=== PATIENT | female | born 1995 | race Caucasian/White ===

== ENCOUNTER 2017-10-12 23:50 | Emergency (ER) | payer MEDICAID ==
[~2017-10-12] VITALS: Ht 157.5 cm; Wt 68.0 kg
[~2017-10-12 23:50] MED LIST: IBUP-1984 PO; PROM25TA14 PO
[2017-10-13 00:17] VITALS: BP 102/48
== END 2017-10-13 00:25 | disposition left against medical advice (07) ==
LOC: ER 23:51
DX: R10.9 Unspecified abdominal pain (principal); R11.10 Vomiting, unspecified; Z53.21 Procedure and treatment not carried out due to patient leaving prior to being seen by health care provider

== ENCOUNTER 2017-10-29 23:28 | Emergency (ER) | payer MEDICAID ==
[~2017-10-29] VITALS: Ht 157.5 cm; Wt 73.0 kg
[2017-10-29 23:47] VITALS: BP 119/71
[2017-10-30] MEDS ORDERED: HYDROcodone/acetaminophen 10/325mg tab PO ONE (00:10)
[2017-10-30] MEDS ORDERED: IBUP-1986 PO (00:42)
[2017-10-30] MEDS ORDERED: TRAM50TA2 PO (00:42)
== END 2017-10-30 01:17 | disposition home or self-care (01) ==
LOC: ER 23:28
DX: S60.221A Contusion of right hand, initial encounter (principal); F12.10 Cannabis abuse, uncomplicated; F17.200 Nicotine dependence, unspecified, uncomplicated; X50.1XXA Overexertion from prolonged static or awkward postures, initial encounter; Y93.72 Activity, wrestling; Y92.89 Other specified places as the place of occurrence of the external cause; Y99.9 Unspecified external cause status
CPT/HCPCS: 29125; 73090; 73110; 99284

== ENCOUNTER 2018-07-27 11:00 | Emergency (ER) | payer MEDICAID ==
[~2018-07-27] VITALS: Ht 157.5 cm; Wt 59.0 kg
[~2018-07-27 11:00] MED LIST changes: +DIPH25CA83 PO; +IBUP-1986 PO; +ONDA8TAB9 PO; +PHE12.5T PO
[2018-07-27] MEDS ORDERED: normal saline 1000ML IV soln IVB ONE (11:35)
[2018-07-27] MEDS ORDERED: LORazepam 2 mg/ml vial IV ONE (12:00)
[2018-07-27 12:11] LABS: BASOPHILS % (AUTO) 0.4 % (0-1); EOSINOPHILS # (AUTO) 0.2 X10'3 (0-0.9); EOSINOPHILS % (AUTO) 1.6 % (0-6); HEMATOCRIT 39.6 % (35.0-45.0); HEMOGLOBIN 13.3 g/dl (12.0-16.0); LYMPHOCYTES # (AUTO) 1.6 X10'3 (1.1-4.8); LYMPHOCYTES % (AUTO) 12.9 % (21-51); MEAN CORPUSCULAR HEMOGLOBIN 29.9 PG (27.0-31.0); MEAN CORPUSCULAR HGB CONC 33.5 % (33.0-36.5); MEAN CORPUSCULAR VOLUME 89.5 FL (78-98); MEAN PLATELET VOLUME 7.4 FL (7.4-10.4); MONOCYTES # (AUTO) 0.8 X10'3 (0-0.9); MONOCYTES % (AUTO) 6.3 % (2-12); NEUTROPHILS % (AUTO) 78.8 % (42-75); PLATELET COUNT 365 X10'3 (140-440); RED BLOOD COUNT 4.42 X10'6 (4.20-5.60); RED CELL DISTRIBUTION WIDTH 13.1 % (11.5-14.5); WHITE BLOOD COUNT 12.7 X10'3 (4.5-11.0)
[2018-07-27 12:20] LABS: ALANINE AMINOTRANSFERASE 25 U/L (12-78); ALBUMIN 3.8 G/DL (3.4-5.0); ALBUMIN/GLOBULIN RATIO 1.1 (1.1-1.5); ALKALINE PHOSPHATASE 73 IU/L (46-116); ANION GAP 11 (8-16); ASPARTATE AMINO TRANSFERASE 15 U/L (10-37); BILIRUBIN,TOTAL 0.7 MG/DL (0.1-1.0); BLOOD UREA NITROGEN 11 MG/DL (7-18); BUN/CREATININE RATIO 16.9 (6.6-38.0); CALCIUM 9.3 MG/DL (8.5-10.1); CHLORIDE 98 MMOL/L (99-107); CREATININE 0.65 MG/DL (0.40-0.90); ETHANOL < 0.010 GM/DL (0.0-0.010); GLUCOSE 91 MG/DL (70-104); POTASSIUM 3.1 MMOL/L (3.5-5.1); SODIUM 135 MMOL/L (135-145); TOTAL CARBON DIOXIDE 25.8 MMOL/L (24-32); TOTAL PROTEIN 7.2 G/DL (6.4-8.2); eGFR > 90 ML/MIN
[2018-07-27 14:03] VITALS: BP 91/52
[2018-07-27 14:04] LABS: URINE AMPHETAMINE SCREEN POSITIVE (Neg); URINE BARBITUATE SCREEN NEGATIVE (Neg); URINE BENZODIAZEPINES SCREEN NEGATIVE (Neg); URINE CANNABINOID SCREEN POSITIVE (Neg); URINE COCAINE SCREEN NEGATIVE (Neg); URINE METHADONE SCREEN NEGATIVE (Neg); URINE OPIATE SCREEN NEGATIVE (Neg); URINE PHENCYCLIDINE SCREEN NEGATIVE (Neg)
[2018-07-27] MEDS ORDERED: PROM25SU46 RC (14:06)
[2018-07-27] MEDS ORDERED: HYDR-4383 PO (14:06)
[2018-07-30] MEDS ORDERED: POTA10TA36 PO (02:04)
[2018-07-30] MEDS ORDERED: MAGN200T8 PO (02:04)
[2018-07-30] MEDS ORDERED: ONDA4TAB6 PO (02:04)
== END 2018-07-27 14:21 | disposition home or self-care (01) ==
LOC: ER 11:00
DX: R41.82 Altered mental status, unspecified (principal); F12.90 Cannabis use, unspecified, uncomplicated; Z79.899 Other long term (current) drug therapy
CPT/HCPCS: 36415; 71045; 80053; 80305; 80320; 82948; 85025; 96374; 99284; J2060; J7030

== ENCOUNTER 2018-08-20 21:21 | Emergency (ER) | payer MEDICAID ==
[~2018-08-20] VITALS: Ht 162.6 cm; Wt 50.0 kg
[~2018-08-20 21:21] MED LIST changes: +HYDR-4383 PO; +MAGN200T8 PO; +ONDA4TAB6 PO; +POTA10TA36 PO; +PROM25SU46 RC
--- NOTE | 2018-08-20 22:17 | NUR ---
PT WAS WALKING TO BATHROOM WHEN SHE LAYED ON THE GROUND AND HAD A "PSEUDOSEIZURE." WHEN TOLD TO STOP FAKING IT, PT STOOD UP AND TOLD THIS RN THAT HER "PSEUDOSEIZURE WERE FUCKING REAL, FUCK YOU!" PT TRIED TO THROW URINE AT ME AND THEN SECURITY WAS CALLED. PTS "PSEUDOSEIZURES" ARE CURED WHEN SHE IS ANGRY.
[2018-08-20] MEDS: LORazepam 2 mg/ml vial IV ONE (22:29)
[2018-08-20] MEDS: proCHLORperazine 10 MG/2 ml inj IV ONE (22:30)
[2018-08-20] MEDS: normal saline 1000ML IV soln IVB ONE (22:30)
[2018-08-20] MEDS: haloperidol lactate 5mg/ml inj IM ONE (22:30)
--- NOTE | 2018-08-20 22:40 | NUR ---
Medications and MD orders delayed secound to patients behaviour.
--- NOTE | 2018-08-20 23:00 | NUR ---
ASSUMED CARE OF PATIENT AND MOVED BACK TO [place] [id number]. AFTER DISCUSSION WITH PATIENT ALLOWING FOR QUESTIONS ANSWERS ETC. PATIENT REPORTS SHE IS THANKFULL I CAME OUTSIDE AND BROUGHT HER BACK.
--- NOTE | 2018-08-20 23:40 | NUR ---
PT MOVED TO BED 6.
[2018-08-21] MEDS: proCHLORperazine 10 MG/2 ml inj IV ONE (00:02)
[2018-08-21] MEDS: normal saline 1000ML IV soln IVB ONE (00:02)
[2018-08-21] MEDS: haloperidol lactate 5mg/ml inj IM ONE (00:04)
[2018-08-21] MEDS: LORazepam 2 mg/ml vial IV ONE (00:06)
[2018-08-21 00:25] VITALS: BP 88/40
--- NOTE | 2018-08-21 01:14 | NUR ---
PT WALKED TO BATHROOM AND PROVIDED URINE SAMPLE, APPEARS IN NO ACUTE DISTRESS, PT NOT VOMITING.
[2018-08-21 01:27] LABS: URINE HCG NEGATIVE (NEG)
--- NOTE | 2018-08-21 02:22 | NUR ---
PT EASILY ARROUSABLE AFTER SLEEPING, APPEARS IN NO DISTRESS, NO PSEUDOSEIZURES, PT REPORTS FEELING A LITTLE BIT BETTER, FALLS BACK ASLEEP RIGHT AWAY,.
== END 2018-08-21 02:50 | disposition home or self-care (01) ==
LOC: ER 21:21
DX: R11.2 Nausea with vomiting, unspecified (principal); R56.9 Unspecified convulsions; F12.90 Cannabis use, unspecified, uncomplicated; F15.90 Other stimulant use, unspecified, uncomplicated; Z79.899 Other long term (current) drug therapy
CPT/HCPCS: 81025; 96361; 96372; 96374; 96375; 99283; J0780; J1630; J2060; J7030

== ENCOUNTER 2018-09-11 12:29 | Emergency (ER) | payer MEDICAID ==
[~2018-09-11] VITALS: Ht 157.5 cm; Wt 60.5 kg
[2018-09-11] MEDS ORDERED: ondansetron 4mg rapidly disintigrating tab PO ONE (12:40)
[2018-09-11 12:47] VITALS: BP 135/59
--- NOTE | 2018-09-11 12:50 | NUR ---
Patient had sz like activity last approx 3 min[address] No incontinence. Patient able to talk and answer questions correctly right after event. Patient's A&O x4. Patient's mother Jaclyn called also and left phone number [phone]. Patient states okay to update mother of her care.
--- NOTE | 2018-09-11 13:13 | NUR ---
PATIENT RAPIDLY THRUSTING PELVIS WHILE LAYING ON LEFT SIDE; PATIENT HELD HER ARM IN THE AIR WHEN IT WAS LIFTED. PATIENT VISIBLY FORCED EYES CLOSED WHEN ATTEMPTING TO LOOK AT PUPILS. PATIENT STOPPED MVEMENT AND RAPIDLY ASKED: WHY DOES MY BODY DO THIS? LABS DRAWN THRU IV
[2018-09-11] MEDS ORDERED: PNV1TABL75 PO (13:32)
[2018-09-11 13:38] LABS: ALANINE AMINOTRANSFERASE 18 U/L (12-78); ALBUMIN 3.6 G/DL (3.4-5.0); ALBUMIN/GLOBULIN RATIO 1.2 (1.1-1.5); ALKALINE PHOSPHATASE 81 IU/L (46-116); ANION GAP 18 (8-16); ASPARTATE AMINO TRANSFERASE 19 U/L (10-37); BILIRUBIN,TOTAL 0.6 MG/DL (0.1-1.0); BLOOD UREA NITROGEN 4 MG/DL (7-18); BUN/CREATININE RATIO 5.5 (6.6-38.0); CALCIUM 8.6 MG/DL (8.5-10.1); CHLORIDE 98 MMOL/L (99-107); CREATININE 0.73 MG/DL (0.40-0.90); GLUCOSE 86 MG/DL (70-104); POTASSIUM 3.5 MMOL/L (3.5-5.1); SODIUM 133 MMOL/L (135-145); TOTAL CARBON DIOXIDE 17.4 MMOL/L (24-32); TOTAL PROTEIN 6.7 G/DL (6.4-8.2); eGFR > 90 ML/MIN
[2018-09-11] MEDS ORDERED: normal saline 1000ML IV soln IVB ONE (13:50)
== END 2018-09-11 14:56 | disposition home or self-care (01) ==
LOC: ER 12:29
DX: O26.891 Other specified pregnancy related conditions, first trimester (principal); R56.9 Unspecified convulsions; R11.0 Nausea; O99.321 Drug use complicating pregnancy, first trimester; F12.90 Cannabis use, unspecified, uncomplicated; F15.90 Other stimulant use, unspecified, uncomplicated; Z79.899 Other long term (current) drug therapy; Z3A.01 Less than 8 weeks gestation of pregnancy
CPT/HCPCS: 36415; 80053; 99283; J7030

== ENCOUNTER 2018-09-14 12:10 | Emergency (ER) | payer MEDICAID ==
[~2018-09-14] VITALS: Ht 157.5 cm; Wt 60.0 kg
[~2018-09-14 12:10] MED LIST changes: +PNV1TABL75 PO
[2018-09-14 14:58] VITALS: BP 120/86
== END 2018-09-14 19:13 | disposition left against medical advice (07) ==
LOC: ER 12:11
DX: O46.91 Antepartum hemorrhage, unspecified, first trimester (principal); Z3A.01 Less than 8 weeks gestation of pregnancy; Z53.21 Procedure and treatment not carried out due to patient leaving prior to being seen by health care provider

== ENCOUNTER 2018-12-31 16:57 | Emergency (ER) | payer MEDICAID ==
[~2018-12-31] VITALS: Ht 154.9 cm; Wt 71.4 kg
[2018-12-31] MEDS ORDERED: normal saline 1000ml 1,000 ML IV ONE ×3 (17:10→21:20)
[2018-12-31] MEDS ORDERED: ondansetron/PF 4mg/2ml inj IV ONE (17:10)
[2018-12-31 17:24] LABS: BASOPHILS # (AUTO) 0.1 X10'3 (0-0.2); BASOPHILS % (AUTO) 0.2 % (0-1); EOSINOPHILS % (AUTO) 0 % (0-6); HEMATOCRIT 42.3 % (35.0-45.0); HEMOGLOBIN 14.3 g/dl (12.0-16.0); LYMPHOCYTES # (AUTO) 0.7 X10'3 (1.1-4.8); LYMPHOCYTES % (AUTO) 2.9 % (21-51); MEAN CORPUSCULAR HEMOGLOBIN 30.2 PG (27.0-31.0); MEAN CORPUSCULAR HGB CONC 33.7 g/dL (33.0-36.5); MEAN CORPUSCULAR VOLUME 89.7 FL (78-98); MEAN PLATELET VOLUME 6.9 FL (7.4-10.4); MONOCYTES # (AUTO) 0.3 X10'3 (0-0.9); MONOCYTES % (AUTO) 1.3 % (2-12); NEUTROPHILS # (AUTO) 21.6 X10'3 (1.8-7.7); NEUTROPHILS % (AUTO) 95.6 % (42-75); PLATELET COUNT 391 X10'3 (140-440); RED BLOOD COUNT 4.72 X10'6 (4.20-5.60); RED CELL DISTRIBUTION WIDTH 13.1 % (11.5-14.5); WHITE BLOOD COUNT 22.6 X10'3 (4.5-11.0)
[2018-12-31 18:01] LABS: ALANINE AMINOTRANSFERASE 78 U/L (12-78); ALBUMIN 4.1 G/DL (3.4-5.0); ALBUMIN/GLOBULIN RATIO 1.1 (1.1-1.5); ALKALINE PHOSPHATASE 93 IU/L (46-116); ANION GAP 21 (8-16); ASPARTATE AMINO TRANSFERASE 24 U/L (10-37); BILIRUBIN,TOTAL 0.7 MG/DL (0.1-1.0); BLOOD UREA NITROGEN 14 MG/DL (7-18); BUN/CREATININE RATIO 15.6 (6.6-38.0); CALCIUM 9.4 MG/DL (8.5-10.1); CHLORIDE 102 MMOL/L (99-107); GLUCOSE 182 MG/DL (70-104); LIPASE 72 U/L (73-393); POTASSIUM 3.6 MMOL/L (3.5-5.1); SODIUM 138 MMOL/L (135-145); eGFR 76 ML/MIN
[2018-12-31 18:04] LABS: BETA HCG,QUANTITATIVE 44794 mIU/ml
[2018-12-31] MEDS ORDERED: LORazepam 2 mg/ml vial IV ONE ×2 (18:20→21:10)
[2018-12-31] MEDS ORDERED: dextrose 5%-normal saline 1,000 ML IV ONE (18:20)
--- NOTE | 2018-12-31 18:43 | NUR ---
ABG done Pt awoke and tolerated it well I sent the out to go and eat and pull himself together.
[2018-12-31 18:50] LABS: ABG BASE EXCESS -10.3 mmol/L (-2.0-3.0); ABG HCO3 13.3 mmol/L (22.0-26.0); ABG PCO2 (T) 24.1 mmHg (32.0-45.0); ABG PH (T) 7.358 (7.350-7.450); ABG PO2 (T) 100.3 mmHg (83-108); ALLEN'S TEST Positive; FCOHb 0.4 % (0.5-1.5); FMetHb 0.2 % (0.3-1.12); FO2Hb 96.4 % (94-100); PATIENT TEMPERATURE 36.9; TOTAL HEMOGLOBIN 13.4 G/dl (12.0-16.0)
--- NOTE | 2018-12-31 19:37 | NUR ---
WHEN VISITING WITH THE [facility], HE SAID THAT SHE HAS NOT SEEN HER PSYCHOLOGIST FOR QUIT SOME TIME R/T LACK OF INSURANCE. SHE IS TO BE ON MEDICINE BUT HE IS NOT SURE IF SHE TAKES IT OR NOT SINCE SHE HAS GOTTEN .
--- NOTE | 2018-12-31 19:57 | NUR ---
lab called out from room and said she was having a seizure. I went in and took down the siderail and instructed her to get up and give me a urine sample. She stopped 'pseudo-seizuring' and got out of bed, asked where her was, and went to the bathroom. When she came back she set the urine on the counter, she had not used the wipe, and she crawled back into bed. As I applied the tourniquet she started the thrash her body up and down on the bed. I informed her that she could just stop it. And she immediately did. Blood was drawn, IV flushed and hooked back up to the saline.
[2018-12-31 20:07] LABS: CLARITY,URINE SLIGHTLY CLOUDY (Clear); COLOR,URINE YELLOW (Yellow); GLUCOSE, URINE 500 mg/dl (Neg); KETONES,URINE 40 mg/dl (Neg); LEUKOCYTE ESTERASE ,URINE SMALL (Neg); NITRITES, URINE NEGATIVE (Neg); OCCULT BLOOD,URINE TRACE-INTACT (Neg); PH,URINE 5.5 (4.8-8.0); PROTEIN,URINE NEGATIVE (Neg); UROBILINOGEN,URINE 0.2 E.U/dL (0.2-1.0)
[2018-12-31 20:11] LABS: UA COLLECTION TYPE CLN CATCH MIDSTREAM
[2018-12-31 20:13] LABS: ALBUMIN 3.4 G/DL (3.4-5.0); ANION GAP 12 (8-16); BLOOD UREA NITROGEN 10 MG/DL (7-18); BUN/CREATININE RATIO 11.4 (6.6-38.0); CALCIUM 7.6 MG/DL (8.5-10.1); CHLORIDE 108 MMOL/L (99-107); CREATININE 0.88 MG/DL (0.40-0.90); GLUCOSE 209 MG/DL (70-104); POTASSIUM 4.1 MMOL/L (3.5-5.1); SODIUM 138 MMOL/L (135-145); TOTAL CARBON DIOXIDE 18.5 MMOL/L (24-32); eGFR 78 ML/MIN
[2018-12-31 20:14] LABS: BACTERIA,URINE 2+ /HPF (Neg); MUCUS STRANDS NONE SEEN /LPF (Neg); RBC,URINE 0-2 /HPF (0-2); SQUAMOUS EPITHELIAL CELL,UR MANY /LPF (FEW); WBC,URINE 0-4 /HPF (0-4)
[2018-12-31] MEDS ORDERED: metoclopramide 5 mg/ml inj IV ONE (21:20)
--- NOTE | 2018-12-31 21:38 | NUR ---
CHEMA, SPOUSE CALLED. UPDATED HIM THAT [facility] NOT [facility]SFER. CHEMA STATES SHE IS NOT A DIABETIC BUT REPORTS SHE REALLY HAS BEEN EATING A LOT OF SUGARY THINGS LATELY.
--- NOTE | 2018-12-31 21:54 | NUR ---
CALLED CHEMA, UPDATED HIM ON POC AND HE SAID THAT HE FOUND HER PILLS AND SHE HAS NOT BEEN TAKING THEM. THEY ARE LAMICTAL AND MERTAZIPINE.
[2018-12-31] MEDS ORDERED: PHE25R PR (22:06)
--- NOTE | 2018-12-31 22:30 | NUR ---
AWOKE HER AND HAD HER TAKE A SIP OF JUICE AND A SPOONFUL OF YOGURT. ENCOURAGED HER TO WAKE UP AND EAT. SHE ASKED THAT I SIT THE YOGURT DOWN. THAT SHE WILL IN A BIT. SHE WILL NOT HAVE ANY EYE CONTACT WITH ME AND IS SHORT TEMPERED AND SEEMS DISINTERESTED IN THE FOOD AND WANTS TO SLEEP.
--- NOTE | 2018-12-31 23:53 | NUR ---
pt has eaten all the yogurt and drank a cup of water and a juice box and kept it all down and is asleep.
--- NOTE | 2019-01-01 01:10 | NUR ---
SPOUSE WILL BE HERE SOON TO GET HER
[2019-01-01 01:34] VITALS: BP 108/68
== END 2019-01-01 01:36 | disposition home or self-care (01) ==
LOC: ER 16:57
DX: O26.891 Other specified pregnancy related conditions, first trimester (principal); O99.331 Smoking (tobacco) complicating pregnancy, first trimester; R11.2 Nausea with vomiting, unspecified; R10.9 Unspecified abdominal pain; F31.9 Bipolar disorder, unspecified; F17.200 Nicotine dependence, unspecified, uncomplicated; F12.90 Cannabis use, unspecified, uncomplicated; F15.90 Other stimulant use, unspecified, uncomplicated; Z3A.01 Less than 8 weeks gestation of pregnancy; Z79.899 Other long term (current) drug therapy
CPT/HCPCS: 36415; 36600; 80048; 80053; 81001; 82009; 82803; 82948; 83690; 84702; 85018; 85025; 96361; 96374; 96375; 96376; 99284; J2060; J2405; J2765; J7030; J7042; 99283

== ENCOUNTER 2020-03-01 19:40 | Emergency (ER) | payer MEDICAID ==
[~2020-03-01] VITALS: Ht 157.5 cm; Wt 65.9 kg
[~2020-03-01 19:40] MED LIST changes: -PHE12.5T PO; +PHE25R PR; +PROM12.512 PO
--- NOTE | 2020-03-01 20:02 | NUR ---
PT HAD PSEUDOSEIZURE DURING BLOOD DRAW. PT INSTRUCTED TO STOP AND PT FOLLOWED COMMANDS.
--- NOTE | 2020-03-01 20:20 | NUR ---
PT LAYING ON RIGHT SIDE WITH EYES CLOSED AND HOLDING HER ARMS OUT IN THE AIR IN A STIFF POSITION AND SHAKING THEM. ENTERED THE ROOM AND ASKED PT TO ROLL ONTO HER BACK SO THAT WE COULD DRAW HER BLOOD. PT DOESN'T OPEN HER EYES BUT STOPS SHAKING AND ROLLS ONTO HER BACK. LAB IS ABLE TO COLLECT A BLOOD SAMPLE.
--- NOTE | 2020-03-01 20:41 | NUR ---
PT IS LAYING ON HER STOMACH SCREAMING "SOMEONE HELP ME" SHE IS ALSO POUNDING HER FISTS INTO THE MATTRESS. WHEN STAFF ENTER THE ROOM SHE WILL STOP BUT THEN SHE STARTS UP AGAIN SOON YOU LEAVE. PT IS ADVISED THAT HER LAB WORK IS PROCESSING AND THAT WE ARE STILL WAITING FOR AN MD TO SEE HER.
[2020-03-01 20:49] LABS: BASOPHILS % (AUTO) 0.2 % (0-1); EOSINOPHILS % (AUTO) 0.1 % (0-6); HEMATOCRIT 43.6 % (35.0-45.0); HEMOGLOBIN 14.8 g/dl (12.0-16.0); LYMPHOCYTES # (AUTO) 1.3 X10'3 (1.1-4.8); LYMPHOCYTES % (AUTO) 7.2 % (21-51); MEAN CORPUSCULAR HEMOGLOBIN 30.2 PG (27.0-31.0); MEAN CORPUSCULAR HGB CONC 33.8 g/dL (33.0-36.5); MEAN CORPUSCULAR VOLUME 89.4 FL (78-98); MEAN PLATELET VOLUME 7.6 FL (7.4-10.4); MONOCYTES # (AUTO) 0.3 X10'3 (0-0.9); MONOCYTES % (AUTO) 1.9 % (2-12); NEUTROPHILS # (AUTO) 16.2 X10'3 (1.8-7.7); NEUTROPHILS % (AUTO) 90.6 % (42-75); PLATELET COUNT 417 X10'3 (140-440); RED BLOOD COUNT 4.88 X10'6 (4.20-5.60); RED CELL DISTRIBUTION WIDTH 13.2 % (11.5-14.5); WHITE BLOOD COUNT 17.9 X10'3 (4.5-11.0)
[2020-03-01 20:58] LABS: ALANINE AMINOTRANSFERASE 21 U/L (12-78); ALBUMIN 4.3 G/DL (3.4-5.0); ALKALINE PHOSPHATASE 115 IU/L (46-116); ANION GAP 21 (8-16); ASPARTATE AMINO TRANSFERASE 18 U/L (10-37); BILIRUBIN,TOTAL 0.7 MG/DL (0.1-1.0); BLOOD UREA NITROGEN 16 MG/DL (7-18); CALCIUM 9.4 MG/DL (8.5-10.1); CHLORIDE 104 MMOL/L (99-107); CREATININE 0.84 MG/DL (0.40-0.90); GLUCOSE 112 MG/DL (70-104); LIPASE 78 U/L (73-393); SODIUM 139 MMOL/L (135-145); TOTAL PROTEIN 8.4 G/DL (6.4-8.2); eGFR 82 ML/MIN
[2020-03-01 21:17] LABS: TOTAL CARBON DIOXIDE 13.9 MMOL/L (24-32)
--- NOTE | 2020-03-01 21:21 | NUR ---
Pt continues to pound her feet on the bed then hold her arms stiffly in the air. Immediatly after, pt sits up, looks around and repositions herself, then asked for the tech to get her an emesis bag. Pt states that she is unable to give a urine sample at this time.
--- NOTE | 2020-03-01 21:37 | NUR ---
PT HAS DROPPED EVERY VOMIT BAG WE HAVE GIVEN HER (ABOUT 5, NONE OF WHICH HAVE VOMIT IN THEM). SHE GOT HERSELF UP OUT OF BED, GRABBED ANOTHER VOMIT BAG, TURNED OFF THE LIGHTS IN HER ROOM AND GOT BACK IN BED AND IMMEDIATELY STARTED POUNDING ON THE BED AGAIN WITH HER FISTS.
[2020-03-01] MEDS ORDERED: LORazepam 2 mg/ml vial IV ONE (22:00)
[2020-03-01] MEDS ORDERED: normal saline 1000ml 1,000 ML IV ONE ×2 (22:00→23:20)
--- NOTE | 2020-03-01 22:00 | NUR ---
PROVIDER AT BEDSIDE
[2020-03-01] MEDS ORDERED: diphenhydrAMINE 50 mg/ml inj IV ONE ×2 (22:10→22:45)
[2020-03-01] MEDS ORDERED: proCHLORperazine 10 MG/2 ml inj IV ONE (22:10)
[2020-03-01] MEDS: haloperidol lactate 5mg/ml inj IM ONE ×2 (22:45→23:38)
[2020-03-01 23:10] LABS: ABG BASE EXCESS -10.8 mmol/L (-2.0-2.0); ABG HCO3 11.7 mmol/L (22.0-26.0); ABG OXYGEN SATURATION 97.9 % (94-97); ABG PCO2 (T) 19.8 mmHg (32.0-45.0); ALLEN'S TEST Modified; FCOHb 0.5 % (0.0-3.9); FMetHb 0.1 % (0.0-1.5); FO2Hb 97.3 % (94-97); PATIENT TEMPERATURE 36.5; TOTAL HEMOGLOBIN 14.9 G/dl (12.0-16.0)
--- NOTE | 2020-03-01 23:14 | NUR ---
PRETTY NOLASCO [phone]
--- NOTE | 2020-03-01 23:29 | NUR ---
pt uncooperative with bloodpressure cuff and pulse oximeter. Unable to take vital signs. Pt asked to leave cuff and finger monitor in place.
[2020-03-01 23:38] LABS: CREATINE KINASE 48 U/L (26-192)
[2020-03-01 23:44] VITALS: BP 96/44
[2020-03-01] MEDS ORDERED: haloperidol lactate 5mg/ml inj IM ONE (23:50)
[2020-03-02 00:10] LABS: ALANINE AMINOTRANSFERASE 19 U/L (12-78); ALBUMIN 3.8 G/DL (3.4-5.0); ALKALINE PHOSPHATASE 105 IU/L (46-116); ANION GAP 18 (8-16); ASPARTATE AMINO TRANSFERASE 14 U/L (10-37); BILIRUBIN,TOTAL 0.5 MG/DL (0.1-1.0); BLOOD UREA NITROGEN 15 MG/DL (7-18); BUN/CREATININE RATIO 17.4 (6.6-38.0); CALCIUM 8.6 MG/DL (8.5-10.1); CHLORIDE 106 MMOL/L (99-107); CREATININE 0.86 MG/DL (0.40-0.90); GLUCOSE 104 MG/DL (70-104); POTASSIUM 4.6 MMOL/L (3.5-5.1); SODIUM 140 MMOL/L (135-145); TOTAL CARBON DIOXIDE 16.4 MMOL/L (24-32); TOTAL PROTEIN 7.6 G/DL (6.4-8.2); eGFR 80 ML/MIN
[2020-03-02] MEDS ORDERED: ONDA4TAB6 PO (00:11)
[2020-03-02] MEDS ORDERED: normal saline 1000ml 1,000 ML IV ONE (00:25)
== END 2020-03-02 02:41 | disposition home or self-care (01) ==
LOC: ER 19:41
DX: R11.2 Nausea with vomiting, unspecified (principal); R10.819 Abdominal tenderness, unspecified site; F12.90 Cannabis use, unspecified, uncomplicated; F15.90 Other stimulant use, unspecified, uncomplicated; Z86.69 Personal history of other diseases of the nervous system and sense organs; Z79.899 Other long term (current) drug therapy
CPT/HCPCS: 36415; 36600; 80053; 82550; 82803; 83605; 83690; 85018; 85025; 93005; 96361; 96372; 96374; 96375; 96376; 99285; J0780; J1200; J1630; J2060; J7030; 99284

== ENCOUNTER 2020-05-15 11:52 | Inpatient (IN) | payer MEDICAID ==
[~2020-05-15] VITALS: Ht 167.6 cm; Wt 86.4 kg
[~2020-05-15 11:52] MED LIST changes: -PROM25SU46 RC; +PROM25SU9 RC
[2020-05-15] MEDS ORDERED: LORazepam 2 mg/ml vial IV ONE ×3 (12:00→16:55)
[2020-05-15] MEDS ORDERED: LORazepam 2 mg/ml vial ONE (12:01)
[2020-05-15] MEDS ORDERED: normal saline 1000ML IV soln IVB ONE (12:05)
[2020-05-15 12:32] LABS: BASOPHILS # (AUTO) 0.1 X10'3 (0-0.2); BASOPHILS % (AUTO) 0.3 % (0-1); EOSINOPHILS % (AUTO) 0 % (0-6); HEMATOCRIT 41.2 % (35.0-45.0); HEMOGLOBIN 13.7 g/dl (12.0-16.0); LYMPHOCYTES # (AUTO) 0.9 X10'3 (1.1-4.8); LYMPHOCYTES % (AUTO) 4.7 % (21-51); MEAN CORPUSCULAR HEMOGLOBIN 30.5 PG (27.0-31.0); MEAN CORPUSCULAR HGB CONC 33.3 g/dL (33.0-36.5); MEAN CORPUSCULAR VOLUME 91.7 FL (78-98); MEAN PLATELET VOLUME 7.3 FL (7.4-10.4); MONOCYTES # (AUTO) 0.5 X10'3 (0-0.9); MONOCYTES % (AUTO) 2.6 % (2-12); NEUTROPHILS % (AUTO) 92.4 % (42-75); PLATELET COUNT 409 X10'3 (140-440); RED BLOOD COUNT 4.49 X10'6 (4.20-5.60); RED CELL DISTRIBUTION WIDTH 14.3 % (11.5-14.5); WHITE BLOOD COUNT 19.5 X10'3 (4.5-11.0)
[2020-05-15 12:37] LABS: URINE HCG NEGATIVE (NEG)
[2020-05-15 12:38] LABS: CLARITY,URINE SLIGHTLY CLOUDY (Clear); COLOR,URINE YELLOW (Yellow); GLUCOSE, URINE NEGATIVE (Neg); KETONES,URINE TRACE mg/dl (Neg); LEUKOCYTE ESTERASE ,URINE NEGATIVE (Neg); NITRITES, URINE NEGATIVE (Neg); OCCULT BLOOD,URINE SMALL (Neg); PROTEIN,URINE TRACE mg/dl (Neg); UROBILINOGEN,URINE 0.2 E.U/dL (0.2-1.0)
--- NOTE | 2020-05-15 12:39 | NUR ---
PATIENT TO CT AT THIS TIME VIA [facility], AROUSABLE TO VERBAL/TACTILE STIMULATION, ABLE TO FOLLOW SIMPLE COMMANDS. NO SIGNS OF DISTRESS NOTED.
[2020-05-15 12:41] LABS: UA COLLECTION TYPE STRAIGHT CATH
[2020-05-15 12:45] LABS: ALBUMIN 4.2 G/DL (3.4-5.0); ALBUMIN/GLOBULIN RATIO 1.1 (1.1-1.5); ALKALINE PHOSPHATASE 97 IU/L (46-116); ANION GAP 16 (8-16); ASPARTATE AMINO TRANSFERASE 22 U/L (10-37); BILIRUBIN,TOTAL 0.5 MG/DL (0.1-1.0); BLOOD UREA NITROGEN 15 MG/DL (7-18); BUN/CREATININE RATIO 12.3 (6.6-38.0); CALCIUM 8.9 MG/DL (8.5-10.1); CHLORIDE 105 MMOL/L (99-107); CREATININE 1.22 MG/DL (0.40-0.90); ETHANOL < 0.010 GM/DL (0.0-0.010); GLUCOSE 125 MG/DL (70-104); SODIUM 140 MMOL/L (135-145); TOTAL PROTEIN 7.9 G/DL (6.4-8.2); eGFR 53 ML/MIN
[2020-05-15 12:50] LABS: BACTERIA,URINE 3+ /HPF (Neg); MUCUS STRANDS MODERATE /LPF (Neg); RBC,URINE 0-2 /HPF (0-2); SQUAMOUS EPITHELIAL CELL,UR FEW /LPF (FEW); WBC,URINE 0-4 /HPF (0-4)
[2020-05-15 12:52] LABS: URINE AMPHETAMINE SCREEN NEGATIVE (Neg); URINE BARBITUATE SCREEN NEGATIVE (Neg); URINE BENZODIAZEPINES SCREEN NEGATIVE (Neg); URINE CANNABINOID SCREEN POSITIVE (Neg); URINE COCAINE SCREEN NEGATIVE (Neg); URINE METHADONE SCREEN NEGATIVE (Neg); URINE OPIATE SCREEN POSITIVE (Neg); URINE PHENCYCLIDINE SCREEN NEGATIVE (Neg)
[2020-05-15 13:09] LABS: ALANINE AMINOTRANSFERASE 36 U/L (12-78)
[2020-05-15] MEDS ORDERED: levetiracetam-NS 1000mg/100ml 100 ML IV ONE (13:35)
[2020-05-15] MEDS ORDERED: ondansetron/PF 4mg/2ml inj IV PRN (14:15)
[2020-05-15] MEDS ORDERED: LORazepam 2 mg/ml vial IV PRN (14:15)
[2020-05-15] MEDS ORDERED: potassium CL 10mEq/100ml bag 100 ML IV PRN (14:15)
[2020-05-15] MEDS ORDERED: acetaminophen 325mg tablet PO PRN (14:15)
[2020-05-15] MEDS ORDERED: potassium Cl 20 mEq SR tablet PO PRN ×2 (14:15)
[2020-05-15] MEDS ORDERED: mag hydrox/Alum hydrox/simeth 30ml oral suspension PO PRN (14:15)
[2020-05-15] MEDS ORDERED: magnesium hydroxide 30ml (MOM) UD suspension PO PRN (14:15)
[2020-05-15] MEDS ORDERED: UNABLE TO OBTAIN (14:22)
[2020-05-15] MEDS: normal saline 1000ml 1,000 ML IV SCH (14:34)
[2020-05-15] MEDS ORDERED: metoclopramide 5 mg/ml inj IV PRN (15:40)
--- NOTE | 2020-05-15 16:05 | NUR ---
Pt arrived to the floor, while assessing, pt began seizing. 6 Addendum: 05/15/20 at 1710 by Angelina Richter RN Pt had 7 seizures from 1630 until 1702, each lasting 10 - 15 seconds. Pt was given ordered medication. Calls/pages were placed to hospitalist, nursing supe and ICU charge. Finally able to obtain an order for additional medications.
--- NOTE | 2020-05-15 16:08 | NUR ---
Patient in room ED 15. I have received report from Kayla and had the opportunity to ask questions and assume patient care.
[2020-05-15 16:30] VITALS: BP_SYST 102; BP_SYST 104; BP_DIAS 70; BP_DIAS 75
[2020-05-15 16:37] VITALS: BP 151/65
[2020-05-15] MEDS: potassium CL 10mEq/100ml bag 100 ML IV PRN ×7 (16:51→23:58)
[2020-05-15] MEDS: pantoprazole 40 MG vial IV SCH (17:56)
--- NOTE | 2020-05-15 18:21 | NUR ---
Problems reprioritized. Patient report given, questions answered & plan of care reviewed with Prudence.
--- NOTE | 2020-05-15 18:58 | NUR ---
Patient in room ORTHO 4023. I have received report from POONAM CONNOLLY and had the opportunity to ask questions and assume patient care.
[2020-05-15] MEDS ORDERED: levetiracetam inj 1,000 MG in normal saline 100ml IV soln 90 ML IV SCH ×2 (20:00)
[2020-05-15] MEDS: K and/or MAG REPLACEMENT MC SCH (20:00)
[2020-05-15] MEDS ORDERED: Levetiracetam-NS 500mg/100ml 100 ML IV SCH (20:00)
[2020-05-15] MEDS: levetiracetam-NS 1000mg/100ml 100 ML IV SCH (20:49)
[2020-05-15 22:00] VITALS: BP 104/60
[2020-05-16] MEDS: normal saline 1000ml 1,000 ML IV SCH ×2 (01:12→11:04)
[2020-05-16] MEDS: potassium CL 10mEq/100ml bag 100 ML IV PRN (01:12)
[2020-05-16 06:00] VITALS: BP 101/68
[2020-05-16 06:01] LABS: BASOPHILS % (AUTO) 0.4 % (0-1); EOSINOPHILS # (AUTO) 0.1 X10'3 (0-0.9); EOSINOPHILS % (AUTO) 0.7 % (0-6); HEMATOCRIT 35.5 % (35.0-45.0); LYMPHOCYTES # (AUTO) 2.6 X10'3 (1.1-4.8); LYMPHOCYTES % (AUTO) 25.3 % (21-51); MEAN CORPUSCULAR HEMOGLOBIN 30.8 PG (27.0-31.0); MEAN CORPUSCULAR HGB CONC 33.7 g/dL (33.0-36.5); MEAN CORPUSCULAR VOLUME 91.5 FL (78-98); MEAN PLATELET VOLUME 7.4 FL (7.4-10.4); MONOCYTES # (AUTO) 0.7 X10'3 (0-0.9); MONOCYTES % (AUTO) 7.2 % (2-12); NEUTROPHILS # (AUTO) 6.8 X10'3 (1.8-7.7); NEUTROPHILS % (AUTO) 66.4 % (42-75); PLATELET COUNT 323 X10'3 (140-440); RED BLOOD COUNT 3.88 X10'6 (4.20-5.60); RED CELL DISTRIBUTION WIDTH 13.7 % (11.5-14.5); WHITE BLOOD COUNT 10.3 X10'3 (4.5-11.0)
[2020-05-16 06:02] LABS: ALBUMIN 3.1 G/DL (3.4-5.0); ANION GAP 5 (8-16); BLOOD UREA NITROGEN 9 MG/DL (7-18); BUN/CREATININE RATIO 13.4 (6.6-38.0); CALCIUM 8.2 MG/DL (8.5-10.1); CHLORIDE 108 MMOL/L (99-107); CREATININE 0.67 MG/DL (0.40-0.90); GLUCOSE 88 MG/DL (70-104); POTASSIUM 4.1 MMOL/L (3.5-5.1); SODIUM 140 MMOL/L (135-145); TOTAL CARBON DIOXIDE 26.7 MMOL/L (24-32); eGFR > 90 ML/MIN
--- NOTE | 2020-05-16 06:02 | NUR ---
Patient in room ORTHO 4023. I have received report from Megan and had the opportunity to ask questions and assume patient care.
--- NOTE | 2020-05-16 06:24 | NUR ---
Problems reprioritized. Patient report given, questions answered & plan of care reviewed with POONAM CONNOLLY.
[2020-05-16] MEDS: levetiracetam-NS 1000mg/100ml 100 ML IV SCH (08:10)
[2020-05-16] MEDS: pantoprazole 40 MG vial IV SCH (08:11)
[2020-05-16] MEDS: K and/or MAG REPLACEMENT MC SCH (08:22)
[2020-05-16 10:00] VITALS: BP 120/63
[2020-05-16] MEDS ORDERED: NO HOME MEDS (10:42)
[2020-05-16 12:32] LABS: URINE HCG NEGATIVE (NEG)
[2020-05-16] MEDS ORDERED: ONDA4TAB6 PO (13:17)
[2020-05-16] MEDS ORDERED: KEP500T PO (13:17)
[2020-05-16] MEDS ORDERED: OMEP40CA13 PO (13:17)
--- NOTE | 2020-05-16 13:48 | NUR ---
PAGER ID: [phone] MESSAGE: Angelina Leong on ortho, Ms. Bosch was able to eat, preg test negative, feels ok to go home, thank you
--- NOTE | 2020-05-16 14:15 | NUR ---
Reviewed discharge instructions with pt. Pt verbalized understanding. Pt is alert, oriented, and does not have c/o pain, nausea, dizziness or seizure activity. Pt was wheeled downstairs to await for family/friend to pick her up. All of pt's belongings were returned to pt.
== END 2020-05-16 14:15 | disposition home or self-care (01) | DRG 53 ==
LOC: ER 11:52 → OBSVTOIN 14:14 → ED HOLD 14:14 → ORTHO 4S 16:09
PROVIDERS: ADMIT Family Medicine; ATTEND Family Medicine
DX: G40.802 Other epilepsy, not intractable, without status epilepticus (principal); E87.6 Hypokalemia; N17.0 Acute kidney failure with tubular necrosis; Z90.49 Acquired absence of other specified parts of digestive tract
CPT/HCPCS: 36415; 70450; 71045; 80048; 80053; 80305; 80320; 81001; 81025; 82948; 85025; 87081; 87088; 96365; 99285; C9113; G0378; J1953; J2060; J3480; J7030

== ENCOUNTER 2020-06-01 15:00 | Emergency (ER) | payer MEDICAID ==
[~2020-06-01] VITALS: Ht 157.5 cm; Wt 90.0 kg
[~2020-06-01 15:00] MED LIST changes: -DIPH25CA83 PO; -HYDR-4383 PO; -IBUP-1984 PO; -IBUP-1986 PO; +KEP500T PO; -MAGN200T8 PO; +OMEP40CA13 PO; -ONDA8TAB9 PO; -PHE25R PR; -PNV1TABL75 PO; -POTA10TA36 PO; -PROM12.512 PO; -PROM25SU9 RC; -PROM25TA14 PO
[2020-06-01 15:07] VITALS: BP 123/78
[2020-06-01] MEDS ORDERED: predniSONE 20 mg tablet PO ONE (16:10)
[2020-06-01] MEDS ORDERED: diphenhydrAMINE 25mg capsule PO ONE (16:10)
[2020-06-01] MEDS ORDERED: SULF5DRO EACHEYE (16:14)
== END 2020-06-01 16:33 | disposition home or self-care (01) ==
LOC: ER 15:01
DX: H10.9 Unspecified conjunctivitis (principal); F12.10 Cannabis abuse, uncomplicated
CPT/HCPCS: 99283; J7512; Q0163